=== PATIENT | female | born 1990 | race Caucasian/White ===

== ENCOUNTER 2018-07-04 04:59 | Inpatient (IN) | payer BC ==
[2018-07-04] VITALS (32 sets, daily range): BP systolic 103–151; BP diastolic 55–90; PULSE 74–107; TEMP 97.5–98.5
[~2018-07-04] VITALS: Ht 165.1 cm; Wt 57.3 kg
[2018-07-04] MEDS ORDERED: PRENATAL MVI (05:19)
--- NOTE | 2018-07-04 06:00 | NUR ---
0500- Patient ambulatory to LDR-4 with , Chet. Patient oriented to room. Patient into restroom to change into gown and void. 0510- EFM and TOCO on and tracing. Assessment completed. 0520- SVE /0. 0530- on unit and updated. 0545- IV started. LR #1. PCN G #1. Patient is requesting an epidural. WIL Will notified. Consents signed. 0600- Report given to NANCY Barnard.
--- NOTE | 2018-07-04 06:10 | NUR ---
0610-Recieved report from NANCY Heck. Patient WL in bed, breathing through contractions. Ready for epidural placement. WIL Will on unit. 0620-Patient up to bathroom. WIL Will to patient room. 0625-Patient returns to bed sitting upright on bedside for epidural placement. 0633- SS administered by WIL Will. Patient reports "I feel nauseated" BP 79/50, maternal HR 100 Oxygen sat 98% on RA. IVF bolus. Cool washcloth to head. 0634-Patient to LL with oxymask in place oxygen 10 L/min. Patient remains A&Ox4. BP 118/62 maternal HR 84. Remains LL. WIL Will resumes epidural procedure. 0644-Test dose administered by WIL Will in LL position. VSS Patient tolerated well. BP 104/65 maternal HR 82. 0648-Repositioned WR. Updated on plan of care and safety.
[2018-07-04 06:19] LABS: BASO % 0.3 % (0.0-2.0); EOS % 0.5 % (0-4.0); GRAN # 5.5 (1.4-6.5); GRAN % 62.9 % (42.2-75.2); HEMATOCRIT 41.7 % (37.0-47.0); HEMOGLOBIN 14.6 g/dl (12.5-16.0); LYMPH # 2.7 (1.2-3.4); LYMPH % 31.1 % (20.0-51.0); MEAN CELL VOLUME 91 fl (80.0-100.0); MEAN CORPUSCULAR HEMOGLOBIN 32 pg (27.0-31.0); MEAN CORPUSCULAR HGB CONC 35 g/dl (33.0-37.0); MEAN PLATELET VOLUME 10.7 fl (7.4-10.4); MONO # 0.4 (0.1-0.6); MONO % 4.9 % (1.7-9.3); PLATELET COUNT 264 K/mm3 (130-400); RED BLOOD COUNT 4.56 M/mm3 (4.10-5.30); REDCELL DISTRIBUTION WIDTH-CV 12.9 % (11.5-14.5)
--- NOTE | 2018-07-04 07:15 | NUR ---
0715-Lentz placed to DD, clear yellow urine return. SVE 6-7/90/-2 Arleth care provided 0721-Patient reports feeling "light headed." Repositioned back WR and layed head back, IVF bolus. Maternal HR 86 BP 99/59, 0730-Peanut ball placed WR, Maternal BP 103/66, HR 75. Reports feeling "better just tired."
--- NOTE | 2018-07-04 08:00 | NUR ---
0800-PITOCIN STARTE PER MD ORDER AND PROTOCOL. SEE PHYSICIAN NOTIFICATION AND EMAR.
--- NOTE | 2018-07-04 10:00 | NUR ---
1000-LATE DECEL WITH SPONTANEOUS RETURN TO BASELINE. RN TO BEDSIDE. 1007-SVE 8-/-1 1010-DR. GEORGES TO ROOM, SVE BY MD -, AROM BY MD, CLEAR FLUID NOTED. WILD CARE PROVIDED. REPOSITIONED WR WITH PEANUT BALL. UDPATED ON PLAN OF CARE.MD REMAINS ON UNIT. REVIEWS STRIP. NO NEW ORDERS. 1030-SVE BY RN -/0 PATIENT VOMITTING, ORAL CARE ASSISTED, REPORTS "I FEEL BETTER." VSS. MD REMAINS ON UNIT. UPDATED MD WITH SVE.
--- NOTE | 2018-07-04 10:45 | NUR ---
PERIOD OF MINIMAL VARIABILITY [id number] WITH INTERMITTENT LATE DECLES, IVF BOLUS
--- NOTE | 2018-07-04 11:07 | NUR ---
1107-SVE 10100/+2, ELMORE DISCONTINUED, 350ML CLEAR YELLOW URINE. WILD CARE PROVIDED. 1110-DR. GEORGES UPDATED ON SVE AND WILL START PUSHING. 1114-PATIENT BEGINS PUSHING WITH RN AT BEDSIDE THROUGH CONTRACTIONS. MOVES VERTEX WELL. 1122-FHR DECE FOLLWING PUSHING EFFORTS DOWN TO 85BPM, REPOSITOINED LL WITH OXYGEN AT 10L/MIN VIA OXYMASK AND IVF BOLUS. RESTED THROUGH FOLLWING CONTRACTIONS. 1129-RESUMED PUSHING WITH RN AT BEDSIDE THROGHT CONTRACTIONS. FHR DECEL DOWN TO 70BPM FOLLWING PUSHING EFFORTS. REPOSITIONED BACK LL, 1130- NOTIFIED OF DECELS IN FHR AND PUSHING EFFORTS. 1133-MD TO PATIENT ROOM, SET UP FOR DELIVERY 1135-PATIENT BEGINS PUSHING WITH MD AT BEDSIDE THROUGH CONTRACTIONS, MOVES VERTEX WELL. 1136-SPONTANEOUS DELIVERY INFANT HEAD IMMEDIATELY FOLLOWED BY BODY. MOUTH AND NOSE SUCTIONED OUT BY DR. GEORGES AND INFANT TO MOTHERS ABDOMEN WHERE ATTENDED TO BY NANCY HOLLOWAY. FATHER OF BABY CUTS UMBILICAL CORD WITH ASSIST FROM DR. GEORGES. 1139-SPONTANEOUS DELIVERY OF INTACT PLACENTA. FUNDAL MASSAGE INITIALLY BOGGY AND FIRMS WITH MASSAGE. LOCHIA WNL, EBL 200ML PER DR. GEORGES. PITOCIN BOLUS PER PROTOCOL AND MD ORDERS. SECOND DEGREE PERINEAL LACERATION REPAIRED BY DR. GEORGES WITH 2.[address]-1. WILD CARE PROVIDED. UPDATED ON PLAN OF CARE AND SAFETY. 1217-PATIENT NAUSEATED WITH MINIMAL EMESIS, LOCHIA WNL, VSS. FUDUS FIRM. PRN ZOFRAN ADMINSITERED, SEE EMAR. 1245-EPIDURAL REMOVED PER ORDERS, TIP INTACT,BANDAIDE APPLIED. PATIENT TOLERATED WELL.
[2018-07-05 02:35] VITALS: BP 113/79; PULSE 80; TEMP 97.8
[2018-07-05 08:10] VITALS: BP 115/74; PULSE 76; TEMP 98.1
--- NOTE | 2018-07-05 10:27 | NUR ---
Initial visit; Parents thanked Refrigeration Person for offering congratulations and God's blessings for the of their daughter. Refrigeration Person thanked them for choosing [facility].
[2018-07-05 17:00] VITALS: BP 116/66; PULSE 80; TEMP 98.9
[2018-07-05 21:00] VITALS: BP 133/77; PULSE 77; TEMP 98.3
[2018-07-06 08:23] VITALS: BP 106/70; PULSE 90; TEMP 97.8
[2018-07-06] MEDS ORDERED: IBU800 M1 PO (08:36)
== END 2018-07-06 12:20 | disposition home or self-care (01) | DRG 806 ==
LOC: LDRO 04:59 → OB 05:30 → LDR 05:30 → OB 15:00
PROVIDERS: Obstetrics & Gynecology; ADMIT Obstetrics & Gynecology
PROC: 10E0XZZ Delivery of Products of Conception, External Approach (ICD-10-PCS; principal; 2018-07-04)
PROC: 0KQM0ZZ Repair Perineum Muscle, Open Approach (ICD-10-PCS; 2018-07-04)
DX: O70.1 Second degree perineal laceration during delivery (principal); O98.813 Other maternal infectious and parasitic diseases complicating pregnancy, third trimester; Z37.0 Single live birth; O36.5930 Maternal care for other known or suspected poor fetal growth, third trimester, not applicable or unspecified; Z3A.39 39 weeks gestation of pregnancy
CPT/HCPCS: J2405; J2540; J2590; J2795; J7120

== ENCOUNTER 2020-01-11 10:23 | Day surgery (SDC) | payer BC ==
[~2020-01-11] VITALS: Ht 165.1 cm; Wt 49.2 kg
[~2020-01-11 10:23] MED LIST: IBU800 M1 PO; PRENATAL MVI
[2020-01-11 11:25] VITALS: BP 113/73; PULSE 83; TEMP 98.1
[2020-01-11 13:23] VITALS: BP 98/54; PULSE 80; TEMP 97.7
--- NOTE | 2020-01-11 13:23 | NUR ---
Pt to [facility] bay 3 via cart from [place]. Pt drowsy, but awake. Denies pain or nausea. at bedside. Pt has pad/mesh panties on. No vaginal bleeding at this time. Pt denies needs at this time. Will continue to monitor.
[2020-01-11] MEDS ORDERED: PERCOCET 325 MG1 TA2 PO (13:31)
[2020-01-11 13:40] VITALS: BP 90/47; PULSE 79
--- NOTE | 2020-01-11 13:40 | NUR ---
Pt takes sips of water without difficulties. Pt denies needs at this time.
[2020-01-11 13:55] VITALS: BP 94/55; PULSE 78
--- NOTE | 2020-01-11 13:55 | NUR ---
Pudding given per pt request. Will continue to monitor. Call light within reach.
[2020-01-11 14:10] VITALS: BP 99/44; PULSE 74
--- NOTE | 2020-01-11 14:10 | NUR ---
Pt tolerating po food and fluids without difficulties. Pt up to restroom with standby assistance. Pt voids without difficulties. Pt reports small amount of blood on pad. Will continue to monitor. Call light within reach.
[2020-01-11 14:40] VITALS: BP 106/55; PULSE 71
--- NOTE | 2020-01-11 14:40 | NUR ---
Discharge instructions reviewed. Pt voices understanding. IV site discontinued with all parts intact. Pt up to dress. Call light within reach.
--- NOTE | 2020-01-11 15:00 | NUR ---
Pt escorted to private car via wheel chair. Pt accompanied home by her .
== END 2020-01-11 15:00 | disposition home or self-care (01) ==
LOC: SDCO 10:23
DX: O03.4 Incomplete spontaneous abortion without complication (principal)
CPT/HCPCS: J2210; J2405; J2704; J3010; J7120